=== PATIENT | male | born 1945 | race African-American/Black ===

== ENCOUNTER 2018-07-21 19:33 | Emergency (ER) | payer MEDICARE ==
[~2018-07-21] VITALS: Ht 185.4 cm; Wt 55.0 kg
[2018-07-21] MEDS ORDERED: ASPIRIN 81 MG TABLET CHEW PO ONE (20:00)
[2018-07-21] MEDS ORDERED: ASPIRIN 81 MG TABLET CHEW ONE (20:10)
[2018-07-21 20:27] VITALS: BP 217/101
[2018-07-21] MEDS ORDERED: PLEASE ENTER ALLERGIES MC SCH (20:30)
[2018-07-21 20:32] LABS: BASOPHILS # (AUTO) 0.02 x10^3/uL (0-0.1); BASOPHILS % (AUTO) 0 % (0-1); EOSINOPHILS % (AUTO) 0 % (1-7); LYMPHOCYTES # (AUTO) 1.08 x10^3/uL (1-3.4); LYMPHOCYTES % (AUTO) 14 % (22-44); MD NO; MEAN CORPUSCULAR HEMOGLOBIN 32.6 pg (27.5-34.5); MEAN CORPUSCULAR HGB CONC 33.8 g/dL (33.2-36.2); MEAN CORPUSCULAR VOLUME 96.2 fL (81-97); MEAN PLATELET VOLUME 10.2 fL (7.4-10.4); MONOCYTES # (AUTO) 0.72 x10^3/uL (0.2-0.8); MONOCYTES % (AUTO) 9 % (2-9); NEUTROPHILS # (AUTO) 6.03 x10^3/uL (1.8-6.8); NEUTROPHILS % (AUTO) 77 % (42-75); PLATELET COUNT 154 x10^3/uL (130-400)
[2018-07-21 20:40] LABS: ALBUMIN 3.7 g/dL (3.4-5.0); ANION GAP 10 mmol/L (5-15); CALCIUM 9.2 mg/dL (8.5-10.1); CHLORIDE 105 mmol/L (98-107); CREATININE 0.97 mg/dL (0.7-1.3)
[2018-07-21 20:44] LABS: TROPONIN I 0.035 ng/mL (0.000-0.045)
== END 2018-07-21 22:17 | disposition home or self-care (01) ==
LOC: ED 21:57
DX: S00.81XA Abrasion of other part of head, initial encounter (principal); S00.31XA Abrasion of nose, initial encounter; I10 Essential (primary) hypertension; Z91.14 Patient's other noncompliance with medication regimen; W01.198A Fall on same level from slipping, tripping and stumbling with subsequent striking against other object, initial encounter; Y93.89 Activity, other specified; Y92.830 Public park as the place of occurrence of the external cause; Y99.8 Other external cause status
CPT/HCPCS: 36415; 70450; 70486; 71046; 72125; 80048; 82040; 84484; 85025; 93005; 99285